=== PATIENT | female | born 1985 | race African-American/Black ===

== ENCOUNTER 2018-08-18 10:13 | Observation (INO) | payer MEDICAID ==
[~2018-08-18] VITALS: Ht 167.6 cm; Wt 131.5 kg
[2018-08-18] MEDS ORDERED: PNV1TABL50 MT (12:25)
== END 2018-08-18 12:35 | disposition home or self-care (01) ==
LOC: 8 EST LDRP 10:13
PROVIDERS: ADMIT Obstetrics & Gynecology; ATTEND Obstetrics & Gynecology
DX: O23.593 Infection of other part of genital tract in pregnancy, third trimester (principal); N89.8 Other specified noninflammatory disorders of vagina; Z3A.39 39 weeks gestation of pregnancy
CPT/HCPCS: 76805; 76818; G0378; 99281